=== PATIENT | female | born 1955 | race African-American/Black ===

== ENCOUNTER 2020-01-21 13:23 | Emergency (ER) | payer MEDICAID, MEDICARE ==
[~2020-01-21] VITALS: Ht 170.2 cm; Wt 82.0 kg
[2020-01-21 14:13] VITALS: BP 119/73
[2020-01-21 17:21] LABS: HEMATOCRIT. 26.2 % (36.0-48.0); MEAN CORPUSCULAR HEMOGLOBIN 30.8 pg (28.0-32.0); MEAN CORPUSCULAR VOLUME 89.3 fL (81.0-99.0); MEAN PLATELET VOLUME 9.3 fl (7.4-10.4); PLATELET 164 x1000/uL (130-400); RED BLOOD CELL COUNT 2.93 mill/uL (4.2-5.4)
[2020-01-21 17:27] LABS: CHLORIDE 99 mEq/L (98-107)
[2020-01-21 18:25] LABS: PLATELET ESTIMATE NORMAL
== END 2020-01-21 18:28 | disposition home or self-care (01) ==
LOC: ER 14:56
DX: J18.9 Pneumonia, unspecified organism (principal); I25.10 Atherosclerotic heart disease of native coronary artery without angina pectoris; I10 Essential (primary) hypertension; E11.9 Type 2 diabetes mellitus without complications
CPT/HCPCS: 36415; 71045; 80053; 83880; 84484; 85025; 93005; 99285

== ENCOUNTER 2020-01-27 15:27 | Emergency (ER) | payer MEDICARE ==
[~2020-01-27] VITALS: Ht 160 cm; Wt 61.0 kg
[2020-01-27] MEDS ORDERED: ASPI-1497 PO (16:00)
[2020-01-27] MEDS ORDERED: DIPHENHYDRAMINE 50MG CAPSULE PO ONE (16:15)
[2020-01-27] MEDS ORDERED: LORAZEPAM 1MG TABLET PO ONE (16:15)
[2020-01-27 18:25] VITALS: BP 100/49
== END 2020-01-27 18:37 | disposition home or self-care (01) ==
LOC: ER 15:27
DX: F41.9 Anxiety disorder, unspecified (principal); I12.0 Hypertensive chronic kidney disease with stage 5 chronic kidney disease or end stage renal disease; N18.6 End stage renal disease; Z99.2 Dependence on renal dialysis
CPT/HCPCS: 82962; 99283; Q0163